=== PATIENT | female | born 1990 | race Two or more races ===

== ENCOUNTER 2020-07-19 13:06 | Emergency (ER) | payer OTHER ==
[~2020-07-19] VITALS: Ht 157.5 cm; Wt 72.6 kg
[~2020-07-19 13:06] MED LIST: IMODIUM A-D2 MG PO; PEPCID40 MG PO; PROVENTIL3 ML/2.5 M IH; SINGULAIR 10MG10 MG PO; ZOFRAN ODT8 MG/UDTAB PO
[2020-07-19] MEDS ORDERED: VISTARIL50 MG PO (17:37)
== END 2020-07-19 18:16 | disposition home or self-care (01) ==
LOC: ER 13:06
DX: R07.89 Other chest pain (principal); F41.8 Other specified anxiety disorders; Z03.818 Encounter for observation for suspected exposure to other biological agents ruled out

== ENCOUNTER 2020-09-21 22:30 | Emergency (ER) | payer OTHER ==
[~2020-09-21] VITALS: Ht 154.9 cm; Wt 65.3 kg
[~2020-09-21 22:30] MED LIST changes: +VISTARIL50 MG PO
[2020-09-22] MEDS ORDERED: ZYRTEC10 M2 PO (03:00)
[2020-09-22] MEDS ORDERED: MUPIROCIN22 GM TOP (03:01)
== END 2020-09-22 03:05 | disposition home or self-care (01) ==
LOC: ER 22:30
DX: R21 Rash and other nonspecific skin eruption (principal); T78.49XA Other allergy, initial encounter; X58.XXXA Exposure to other specified factors, initial encounter